=== PATIENT | male | born 1995 | race Two or more races ===

== ENCOUNTER 2017-12-27 17:42 | Emergency (ER) | payer BC ==
[2017-12-27 17:49] VITALS: BP 131/64; PULSE 52; TEMP 97.4; BMI 23.0
--- NOTE | 2017-12-27 18:42 | PDOC ---
History of Present Illness - General Chief Complaint: Wound Stated Complaint: WOUND Time Seen by Provider: 12/27/17 17:53 History Source: Patient Exam Limitations: No Limitations - History of Present Illness Initial Comments: CHIEF COMPLAINT: 22 y/o afebrile male c/o painful open wound to buttocks for " a few weeks". HISTORY OF PRESENT ILLNESS: The patient states the area started out as a pimple. He states it eventually opened and has been draining blood. He does admit he sweats a lot at work. He denies all other symptoms. Vital signs on arrival are within normal limits. REVIEW OF SYSTEMS: GENERAL/CONSTITUTIONAL: No fever MUSCULOSKELETAL: No joint or muscle swelling or pain. No neck or back pain. SKIN: open wound to buttock NEUROLOGIC: No headache, vertigo, loss of consciousness, or loss of sensation. PHYSICAL EXAM: GENERAL: The patient is awake, alert, and fully oriented, in no acute distress. HEAD: Normal with no signs of trauma. NEUROLOGICAL: Normal speech, normal gait. CN II-XII grossly intact. SKIN: 0.5cm open, raised abscess at most superior part of gluteal fold draining minimal blood and purulent discharge. No surrounding erythema. No rectal wall involvement. Past History - Past Medical History Allergies/Adverse Reactions: Allergies Allergy/AdvReac Type Severity Reaction Status Date / Time No Known Allergies Allergy Verified 12/27/17 17:49 Home Medications: Ambulatory Orders Sulfamethoxazole/Trimethoprim [Bactrim Ds -] 1 tab PO BID #20 tablet 08/14/14 Sulfamethoxazole/Trimethoprim [Bactrim Ds -] 1 tab PO BID #20 tablet 12/27/17 COPD: No - Suicide/Smoking/Psychosocial Hx Smoking History: Never smoked Hx Alcohol Use: No Substance Use Type: None *Physical Exam - Vital Signs Last Vital Signs Temp Pulse Resp BP Pulse Ox 97.4 F L 52 L 18 131/64 99 12/27/17 17:46 12/27/17 17:46 12/27/17 17:46 12/27/17 17:46 12/27/17 17:46 Medical Decision Making - Medical Decision Making A/P: 22 y/o male with skin abscess to buttock. Abscess is already open and draining. Will discharge to home with rx for bactrim. Suggested he apply hot compresses and keep area dry. Instructed him to f/u with Dr. Ulrich in 1 week if no improvement in symptoms. The patient verbalizes understanding of all instructions, has no further questions and is awaiting discharge. *DC/Admit/Observation/Transfer Diagnosis at time of Disposition: Abscess of skin Qualifiers: Site of cutaneous abscess: buttock Qualified Code(s): L02.31 - Cutaneous abscess of buttock - Discharge Dispostion Disposition: HOME Condition at time of disposition: Good - Referrals Referrals: Roddy Ulrich MD [Primary Care Provider] - 1 week - Patient Instructions Printed Discharge Instructions: DI for Anal Abscess Additional Instructions: Discharge Instructions: -You have a skin abscess -A prescription for antibiotics has been sent to your pharmacy -Please apply hot compresses 2-3 times per day -Keep area dry -If no improvement in 1 week please follow up with Dr. Ulrihc - Post Discharge Activity
== END 2017-12-27 22:00 | disposition home or self-care (01) ==
LOC: JERFT 17:42
DX: L02.31 Cutaneous abscess of buttock (principal)
CPT/HCPCS: 99281-25